=== PATIENT | female | born 1995 | race Caucasian/White ===

== ENCOUNTER 2022-05-11 05:10 | Outpatient (CLI) | payer MEDICAID ==
[~2022-05-11] VITALS: Ht 172.7 cm; Wt 79.5 kg
[~2022-05-11 05:10] MED LIST: DIFLUCAN150 MG PO; DOXYCYCLINE 10100 MG PO; IBU800 M1 PO; PERCOCET 325 MG1 TA2 PO; VENTOLIN0.09 MG IH
[2022-05-11 05:30] VITALS: BP 119/72; PULSE 81
--- NOTE | 2022-05-11 05:50 | NUR ---
To unit via wheelchair for assessment, accompanied by mother. Pt reports L lower back pain for 2 days, now radiating to L side of abd. Pt reports no BM since Wed, has tried Miralax x 1 with a very small result but no relief of abd pain. SVE attempt, pt tolerates poorly, unable to reach, no vaginal bleeding no LOF.
[2022-05-11 06:07] LABS: COLLECTION METHOD CLEAN CATCH
[2022-05-11 06:19] LABS: MUCOUS Present (NOT PRESENT); SQUAMOUS EPITHELIAL 0-2 /hpf (0-10); URINE BACTERIA None Seen /hpf (NONE SEEN); URINE RBC 0-2 /hpf (0-2)
[2022-05-11 06:21] LABS: URINE APPEARANCE Clear (CLEAR/HAZY); URINE COLOR Yellow (YELLOW)
[2022-05-11 06:22] LABS: URINE BLOOD Negative (NEGATIVE); URINE GLUCOSE Negative (NEGATIVE); URINE KETONE 2+ (NEGATIVE); URINE NITRATE Negative (NEGATIVE); URINE PROTEIN(semi-quant) Negative (NEGATIVE); URINE UROBILINOGEN 0.2 E.U/dL (0.2-1.0)
[2022-05-11 06:30] VITALS: BP 122/78; PULSE 82
--- NOTE | 2022-05-11 07:10 | NUR ---
PT SITS UP IN BED, C/O NAUSEA HAS HAD NO EMESIS SINCE SHES BEEN HERE, BUT REPORTS HAVING EMESIS AT HOME ALL NIGHT. PT UNABLE TO DETERMINE CTXS VS ABD PAIN. REPORTS THAT HER PAIN IS ONLY ON HER LEFT SIDE OF HER ABD
--- NOTE | 2022-05-11 07:15 | NUR ---
0655 - DISCHARGE INSTRUCTIONS GIVEN, VOICES GOOD UNDERSTANDING 0700 - DISMISSED HOME AMBULATORY IN STABLE CONDITION WITH MOTHER
== END 2022-05-11 07:00 | disposition home or self-care (01) ==
LOC: LDRO 05:10
PROVIDERS: Obstetrics & Gynecology
DX: O26.893 Other specified pregnancy related conditions, third trimester (principal); Z3A.34 34 weeks gestation of pregnancy